=== PATIENT | female | born 1930 | race Caucasian/White ===

== ENCOUNTER 2016-09-24 19:05 | Emergency (ER) | payer BC ==
[2016-09-24 15:52] LABS: BASOPHILS 0.4 %; BASOPHILS ABSOLUTE 0.03 10/3/uL (0.0-0.16); EOSINOPHILS 2.5 %; EOSINOPHILS ABSOLUTE 0.17 10/3/uL (0.0-0.53); ER CBC TAT 0 Hrs 09 Mins; HEMATOCRIT 46.4 % (36.0-48.0); HEMOGLOBIN 15.8 g/dL (12.0-16.0); IMMATURE GRANULOCYTES 0.1 %; IMMATURE GRANULOCYTES ABSOLUTE 0.01 10/3/uL (0.0-0.11); LYMPHOCYTES 31.4 %; LYMPHOCYTES ABSOLUTE 2.14 10/3/uL (0.67-4.30); MEAN CORPUS HGB CONC 34.1 g/dL (32.0-36.0); MEAN CORPUSCULAR HEMOGLOB 31.5 pg (26.0-34.0); MEAN CORPUSCULAR VOLUME 92.6 fL (80-100); MONOCYTES 6.7 %; MONOCYTES ABSOLUTE 0.46 10/3/uL (0.21-1.20); NEUTROPHILS 58.9 %; NEUTROPHILS ABSOLUTE 4.01 10/3/uL (2.02-8.40); PLATELET COUNT 232 10/3/uL (150-400); RBC DISTRIBUTION WIDTH 14.2 % (12.0-16.0); RED CELL COUNT 5.01 10/6/uL (4.0-5.6); WHITE BLOOD CELLS 6.8 10/3/uL (4.5-10.5)
[2016-09-24 15:53] LABS: MANUAL DIFF NO %
[2016-09-24 15:58] LABS: INTERNATIONAL NORMAL RATI 1.3 UNITS (-); PARTIAL THROMBO TIME 37.9 SEC (22.5-37.2)
[2016-09-24 16:09] LABS: BUN (BLOOD UREA NITROGEN) 22 MG/DL (6-23); CALCIUM, SERUM 9.5 MG/DL (8.5-10.4); CHEST PAIN PROFILE TAT 0 Hrs 26 Mins; CHLORIDE, SERUM 105 MMOL/L (96-112); CREATININE 1.29 MG/DL (0.55-1.02); GFR AFRICAN AMERICAN 44 ML/MIN (>=60); GFR NON AFRICAN AMERICAN 38 ML/MIN (>=60); GLUCOSE, SERUM 98 MG/DL (60-99); POTASSIUM, SERUM 4.6 MMOL/L (3.5-5.3); SODIUM, SERUM 141 MMOL/L (135-148); TROPONIN I <0.02 NG/ML (<0.05)
[2016-09-24 16:11] LABS: CO2 (CARBON DIOXIDE) 28 MMOL/L (24-34)
[~2016-09-24 19:05] MED LIST: ACET500CAP PO; ALINIA500 PO; AREDS PO; ARICEPT10 PO; ASAB PO; AT10 PO; BALSALAZIDE750 MG PO; BENTYL20 PO; BIOTIN 500 MCG PO; C25 PO; CAL PO; CALCIUM PO; CARDCD120 PO; CARTIA XT120 MG/24 PO; CHOLECALCIFEROL PO; COUMADIN3 MG PO; COUMADIN4 MG PO; DILT-XR120 MG PO; ESTRACE0.5 MG PO; FISH OIL1200 MG PO; FLAG500TAB PO; IBU-200200 MG PO; JANTOVEN1 MG PO; JANTOVEN3 MG PO; LEVAQUIN750 MG PO; LEXAPRO5 MG PO; LIBRAX PO; LIPITOR40; MACROBID PO; MAGNESIUM OTC PO; MAGNESIUM PO; MAXIMUM D3 PO; MCZ25 PO; MOTRIN IB200 MG PO; MULTIPLE VIT PO; MYRBETRIQ25 MG PO; NEUR100 PO; NEUR300 PO; NEUR600 PO; OCEAN NAS; PLAVIX PO; PREDNISONE2.5 MG PO; PREM.3B PO; PRESERVISION A1 EAC1 PO; PRESERVISION PO; PROAIR HFA INH; TEARS NATURA OPH; TOPAMAX25 PO; TYLENOL; VANCOCIN HCL250 MG PO; VITAMIN B PO; VITAMIN D3 OTC PO; VITAMIN D3 PO; VITAMINS; VITC500 PO; VOLTAREN1 % TOP
== END 2016-09-24 19:30 | disposition left against medical advice (07) ==
LOC: ER 19:05
PROVIDERS: Emergency Medicine
DX: Z53.21 Procedure and treatment not carried out due to patient leaving prior to being seen by health care provider (principal)
CPT/HCPCS: 71020; 80048; 83735; 84484; 85025; 85610; 85730; 93005

== ENCOUNTER 2016-10-05 06:17 | Observation (INO) | payer BC ==
[2016-10-05] MEDS ORDERED: VITE PO (07:02)
[2016-10-05 07:21] LABS: BASOPHILS 0.5 %; BASOPHILS ABSOLUTE 0.03 10/3/uL (0.0-0.16); EOSINOPHILS 4.3 %; EOSINOPHILS ABSOLUTE 0.28 10/3/uL (0.0-0.53); HEMATOCRIT 42.9 % (36.0-48.0); HEMOGLOBIN 14.6 g/dL (12.0-16.0); IMMATURE GRANULOCYTES 0.2 %; IMMATURE GRANULOCYTES ABSOLUTE 0.01 10/3/uL (0.0-0.11); MEAN CORPUSCULAR HEMOGLOB 31.9 pg (26.0-34.0); MEAN CORPUSCULAR VOLUME 93.7 fL (80-100); MEAN PLATELET VOLUME 12.2 fL (9.2-13.0); MONOCYTES 9.3 %; MONOCYTES ABSOLUTE 0.61 10/3/uL (0.21-1.20); NEUTROPHILS 50.7 %; NEUTROPHILS ABSOLUTE 3.34 10/3/uL (2.02-8.40); PLATELET COUNT 170 10/3/uL (150-400); RBC DISTRIBUTION WIDTH 13.3 % (12.0-16.0); RED CELL COUNT 4.58 10/6/uL (4.0-5.6); WHITE BLOOD CELLS 6.6 10/3/uL (4.5-10.5)
[2016-10-05 07:26] LABS: MANUAL DIFF NO %
[2016-10-05 07:35] LABS: CALCIUM, SERUM 9.2 MG/DL (8.5-10.4); CHLORIDE, SERUM 110 MMOL/L (96-112); CO2 (CARBON DIOXIDE) 26 MMOL/L (24-34); CREATININE 1.18 MG/DL (0.55-1.02); GFR AFRICAN AMERICAN 49 ML/MIN (>=60); GFR NON AFRICAN AMERICAN 42 ML/MIN (>=60); GLUCOSE, SERUM 92 MG/DL (60-99); HDL CHOLESTEROL 52 MG/DL (> 49); POTASSIUM, SERUM 3.7 MMOL/L (3.5-5.3); SODIUM, SERUM 144 MMOL/L (135-148)
[2016-10-05 07:36] LABS: BUN (BLOOD UREA NITROGEN) 11 MG/DL (6-23); CHOL/HDL RATIO(NOT ORDER) 1.8 (0-5); CHOLESTEROL 96 MG/DL (< 200); LDL CHOLESTEROL 29 MG/DL (< 130); NON-HDL CHOLESTEROL 44 MG/DL (< 160); TRIGLYCERIDE 77 MG/DL (< 150)
[2016-10-05 08:12] LABS: INTERNATIONAL NORMAL RATI 1.3 UNITS (-); PROTIME (NOT ORD) 15.6 SEC (12.0-14.5)
[2016-10-06 05:29] LABS: BUN (BLOOD UREA NITROGEN) 14 MG/DL (6-23); CALCIUM, SERUM 8.8 MG/DL (8.5-10.4); CHLORIDE, SERUM 110 MMOL/L (96-112); CO2 (CARBON DIOXIDE) 23 MMOL/L (24-34); CREATININE 1.12 MG/DL (0.55-1.02); GFR AFRICAN AMERICAN 52 ML/MIN (>=60); GFR NON AFRICAN AMERICAN 45 ML/MIN (>=60); GLUCOSE, SERUM 84 MG/DL (60-99); POTASSIUM, SERUM 3.8 MMOL/L (3.5-5.3); SODIUM, SERUM 142 MMOL/L (135-148)
[2016-10-06 05:37] LABS: BASOPHILS 0.5 %; BASOPHILS ABSOLUTE 0.04 10/3/uL (0.0-0.16); EOSINOPHILS 3.8 %; EOSINOPHILS ABSOLUTE 0.31 10/3/uL (0.0-0.53); HEMATOCRIT 42.2 % (36.0-48.0); HEMOGLOBIN 14.5 g/dL (12.0-16.0); IMMATURE GRANULOCYTES 0.1 %; IMMATURE GRANULOCYTES ABSOLUTE 0.01 10/3/uL (0.0-0.11); LYMPHOCYTES 23.3 %; LYMPHOCYTES ABSOLUTE 1.89 10/3/uL (0.67-4.30); MEAN CORPUS HGB CONC 34.4 g/dL (32.0-36.0); MEAN CORPUSCULAR VOLUME 93.2 fL (80-100); MEAN PLATELET VOLUME 12.4 fL (9.2-13.0); MONOCYTES 8.6 %; NEUTROPHILS 63.7 %; NEUTROPHILS ABSOLUTE 5.17 10/3/uL (2.02-8.40); PLATELET COUNT 175 10/3/uL (150-400); RBC DISTRIBUTION WIDTH 13.5 % (12.0-16.0); RED CELL COUNT 4.53 10/6/uL (4.0-5.6); WHITE BLOOD CELLS 8.1 10/3/uL (4.5-10.5)
[2016-10-06 05:38] LABS: MANUAL DIFF NO %
== END 2016-10-06 10:45 | disposition home or self-care (01) ==
LOC: CORLMH 06:17 → SSU1 06:31
PROVIDERS: Internal Medicine Cardiovascular Disease
DX: I25.110 Atherosclerotic heart disease of native coronary artery with unstable angina pectoris (principal); Z79.02 Long term (current) use of antithrombotics/antiplatelets; Z79.82 Long term (current) use of aspirin; G47.33 Obstructive sleep apnea (adult) (pediatric); I48.91 Unspecified atrial fibrillation; D72.829 Elevated white blood cell count, unspecified; Z23 Encounter for immunization
CPT/HCPCS: 80048; 80061; 85025; 85347; 85610; 90662; 93005; 99152; 99153; A9270-GY; C1725; C1769; C1874; C1887; C1894; C9600; G0008; G0378; J0583; J2250; J3010; Q9967